=== PATIENT | male | born 1985 | race Caucasian/White ===

== ENCOUNTER 2018-02-24 20:22 | Emergency (ER) | payer OTHER ==
[~2018-02-24] VITALS: Ht 190.5 cm; Wt 136.1 kg
[~2018-02-24 20:22] MED LIST: NICOTINE PATCH1 EAC1 TD
[2018-02-24] MEDS ORDERED: XARELTO10 MG (20:41)
== END 2018-02-24 22:22 | disposition home or self-care (01) ==
LOC: ED 20:22
PROC: 0HQ5XZZ Repair Chest Skin, External Approach (ICD-10-PCS; principal; 2018-02-24)
DX: S21.112A Laceration without foreign body of left front wall of thorax without penetration into thoracic cavity, initial encounter (principal); S21.111A Laceration without foreign body of right front wall of thorax without penetration into thoracic cavity, initial encounter; F17.200 Nicotine dependence, unspecified, uncomplicated; Z79.899 Other long term (current) drug therapy; Z23 Encounter for immunization; W25.XXXA Contact with sharp glass, initial encounter
CPT/HCPCS: 12006; 90471; 90715; 99282

== ENCOUNTER 2018-05-24 16:02 | Emergency (ER) | payer OTHER ==
[~2018-05-24] VITALS: Ht 190.5 cm; Wt 136.1 kg
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
--- OUTSIDE RECORDS SUMMARY | ~2018-05-24 | XMS | Encounter Summary ---
Demographics + + + | Address | [address] | | | [place] [address] | + + + | Home Phone | | + + + | Preferred Language | Unknown | + + + | Marital Status | Single | + + + | Sikhism Affiliation | 1041 | + + + | Race | Unknown | + + + | Ethnic Group | Unknown | + + + Author + + + | Author | [facility] | | | and [place] | + + + | Organization | [facility] | | | and [place] | + + + | Address | Unknown | + + + | Phone | Unavailable | + + + Support + + + + + | Name | Relationship | Address | Phone | + + + + + | Fiona Colby | ECON | [address] [facility] | | | | | [place] | | | | | [place] [address] | | + + + + + | Buddy Avila | ECON | [address] | | | | | [place], | | | | | [place] [address] | | + + + + + Care Team Providers + +------+ + | Care Paramedic Rn Name | Role | Phone | + +------+ + | No, Unknownpcp | PCP | | + +------+ + Reason for Visit + + + | Reason | Comments | + + + | Medication Refill | | + + + Encounter Details +--------+--------+ + + + | Date | Type | Department | Care Team | Description | +--------+--------+ + + + | 03/16/ | Refill | [facility] | Maxine Lucas | Medication Refill | | 2017 | | SUR[address]ERY [address] | MD Michael [address] | | | | | [place], [place] | [address] [facility] | | | | | [address] | [place] [address] | | | | | [phone] | [phone] | | | | | | | | +--------+--------+ + + + Social History + + + +--------+------+ [...] on file | | + + + as of this encounter Plan of Treatment Not on fileas of this encounter Visit Diagnoses Not on filein this encounter"
--- OUTSIDE RECORDS SUMMARY | ~2018-05-24 | XMS | Encounter Summary ---
Demographics + + + | Address | [address] | | | [place] [address] | + + + | Home Phone | | + + + | Preferred Language | Unknown | + + + | Marital Status | Single | + + + | Orthodox Affiliation | 1041 | + + + | Race | Unknown | + + + | Ethnic Group | Unknown | + + + Author + + + | Author | [facility] | | | and [place] | + + + | Organization | [facility] | | | and [place] | + + + | Address | Unknown | + + + | Phone | Unavailable | + + + Support + + + + + | Name | Relationship | Address | Phone | + + + + + | Fiona Colby | ECON | [address] [facility] [address] [facility] | | | | | [place] | | | | | [place] [address] | | + + + + + | Buddy Avila | ECON | [address] | | | | | [place], | | | | | [place] [address] | | + + + + + Care Team Providers + +------+ + | Care Aircraft Electrical Systems Specialist Name | Role | Phone | + +------+ + | No, Unknownpcp | PCP | | + +------+ + Reason for Visit + + + | Reason | Comments | + + + | Wound Check | | + + + Encounter Details +--------+ + + + + | Date | Type | Department | Care Team | Description | +--------+ + + + + | 03/01/ | Emergency | [facility] | Saulo Madera, | Cellulitis, | | 2017 | | [facility] | [place] [address] | unspecified | | | | [place] [address] | [place] | cellulitis site | | | | [place] | [id number] | (Primary Dx) | | | | [address] | | | | | | [phone] | | | +--------+ + + + + Social History + + [...] + + + as of this encounter Last Filed Vital Signs + + + + | Vital Sign | Reading | Time Taken | + + + + | Blood Pressure | 121/76 | 03/01/20181726 PDT | + + + + | Pulse | 92 | 03/01/20181726 PDT | + + + + | Temperature | 36.7 C (98 F) | 03/01/20181726 PDT | + + + + | Respiratory Rate | 18 | 03/01/20181726 PDT | + + + + | Oxygen Saturation | 99% | 03/01/20181726 PDT | + + + + | Inhaled Oxygen | - | - | | Concentration | | | + + + + | Weight | 136.1 kg (300 lb) | 03/01/20181726 PDT | + + + + | Height | - | - | + + + + | Body Mass Index | 37.5 | 03/01/20181726 PDT | + + + + in this encounter Discharge Instructions The following attachments cannot be sent through Care Everywhere.Skin Infection, Cellulitis (Nepali)in this encounter Medications at Time of Discharge + + +---------+---------+ + + | Medication | Sig. | Disp. | Refills | Start | End Date | | | | | | Date | | + + +---------+---------+ + + | acetaminophen | Take 650 mg by mouth | | | | | | (TYLENOL) 325 mg | every 4 hours as | | | | | | tablet | needed for Pain. | | | | | + + +---------+---------+ + + | cephalexin | Take 1 capsule by | 28 | 0 | 03/01/20 | | | (KEFLEX) 500 mg | mouth 4 times daily | capsule | | 18 | 8 | | capsule | for 7 days. | | | | | + + +---------+---------+ + + | rivaroxaban | Take 1 tablet by | 30 | 3 | 12/23/19 | | | (XARELTO) 20 mg | mouth Daily (with | tablet | | 18 | 8 | | tablet | dinner). | | | | | + + +---------+---------+ + + as of this encounter Plan of Treatment Not on fileas of this encounter Visit Diagnoses + + | Diagnosis | + + | Cellulitis, unspecified cellulitis site - Primary | + +"
--- OUTSIDE RECORDS SUMMARY | ~2018-05-24 | XMS | Encounter Summary ---
Demographics + + + | Address | [address] | | | [place] [address] | + + + | Home Phone | | + + + | Preferred Language | Unknown | + + + | Marital Status | Single | + + + | Catholic Affiliation | 1041 | + + + | Race | Unknown | + + + | Ethnic Group | Unknown | + + + Author + + + | Author | [facility] | | | and [place] | + + + | Organization | [facility] | | | and [place] | + + + | Address | Unknown | + + + | Phone | Unavailable | + + + Support + + + + + | Name | Relationship | Address | Phone | + + + + + | Fiona Colby | ECON | [address] [facility] | | | | | [place] | | | | | [place] [address] | | + + + + + | Buddy Avila | ECON | [address] | | | | | [place], | | | | | [place] [address] | | + + + + + Care Team Providers + +------+ + | Care Kettle Cook Name | Role | Phone | + [...] + + | 03/16/ | Refill | [facility] | Maxine Lucas | Medication Refill | | 2017 | | SUR[address] | MD [address] | | | | | [place], [place] | [facility] | | | | | [address] | [place] [address] | | | | | [phone] | [phone] | | | | | | | [...]
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
--- OUTSIDE RECORDS SUMMARY | ~2018-05-24 | XMS | Encounter Summary ---
Demographics + + + | Address | [address] | | | [place] [address] | + + + | Home Phone | | + + + | Preferred Language | Unknown | + + + | Marital Status | Single | + + + | Jain Affiliation | 1041 | + + + | Race | Unknown | + + + | Ethnic Group | Unknown | + + + Author + + + | Author | [facility] | | | and [place] | + + + | Organization | [facility] | | | and [place] | + + + | Address | Unknown | + + + | Phone | Unavailable | + + + Support + + + + + | Name | Relationship | Address | Phone | + + + + + | Fiona Colby | ECON | [address] | | | | | [place] | | | | | [place] [address] | | + + + + + | Buddy Avila | ECON | [address] | | | | | [place], | | | | | [place] [address] | | + + + + + Care Team Providers + +------+ + | Care Surface Plate Finisher Name | Role | Phone | + [...] + + | 03/01/ | Emergency | [facility] | [place], | Cellulitis, | | 2017 | | [facility] | [place] [address] | unspecified | | | | [place] [address] | [place] | cellulitis site | | | | [place] | [phone] | (Primary Dx) | | | | [address] | | | | | | [phone] | | | +--------+ + + + [...] be sent through Care Everywhere.Skin Infection, Cellulitis (Greenlandic)in this encounter Medications at Time of Discharge [...]
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
--- OUTSIDE RECORDS SUMMARY | ~2018-05-24 | XMS | Encounter Summary ---
Demographics + + + | Address | [address] | | | [place] [address] | + + + | Home Phone | | + + + | Preferred Language | Unknown | + + + | Marital Status | Single | + + + | Mormon Affiliation | 1041 | + + + | Race | Unknown | + + + | Ethnic Group | Unknown | + + + Author + + + | Author | [facility] | | | and [place] | + + + | Organization | [facility] | | | and [place] | + + + | Address | Unknown | + + + | Phone | Unavailable | + + + Support + + + + + | Name | Relationship | Address | Phone | + + + + + | Fiona Colby | ECON | [address] [facility] [facility] | | | | | [place] | | | | | [place] [address] | | + + + + + | Buddy Avila | ECON | [address] | | | | | [place], | | | | | [place] [address] | | + + + + + Care Team Providers + +------+ + | Care Contact And Service Clerks Supervisor Name | Role | Phone | + [...] [place] | anticoagulant | | | | [phone] | [phone] | therapy (Primary | | | | [phone] | | Dx); Thrombosis | | | | | | mesenteric artery | | | | | | ([facility]) | +--------+---------+ + + + Social History [...] containing the crushed tablet. Talk to your greek professor regarding the use of this medicine in children. Special care may be needed. What side effects may I notice from receiving this medicine? Side effects that you should report to your doctor or health medicare specialist as soon as p ossible: allergic reactions [...] attention (report to your doctor or health medicare specialist if they continue or are bothersome): dizziness [...] like citalopram, escitalopram, fluoxetine, fluvoxamine, paroxetine, sertraline [place]'s wort verapamil What if I miss a [...] this medicine? Visit your doctor or health medicare specialist for regular checks on your progress. Notify your doctor or health medicare specialist and seek emergency treatment if you develop [...] Progress Notes Mark Hankins MD - 03/17/2018 1150 PDTFormatting of this note may be different [...] history of a mesenteric artery thrombosis in [facility] for which she had surgery and was subsequently placed on Xarelto which he was told he w ould need to be on for 3-6 months. He has recently changed primary care providers and the counts include 234 beds at the [facility] primary care provider is unable to [...] states that he had just walked from [place] which is about 12 miles away and [...] Placement ; Surgeon: Maxine Lucas MD; Location: [facility] MAIN OR FRACTURE SURGERY right hand fx has two pins LAPAROTOMY N/A 12/01/2017 Procedure: Exploratory Laparotomy, Possible Bowel Resection, Possible Wound Closure; Surg lara: Maxine Lucas MD; Location: [facility] MAIN OR LAPAROTOMY N/A 12/02/2017 Procedure: Second Look-Exploratory Laparotomy, Wound Vac Removal, and Abdominal Closure; Surgeon: Maxine Lucas MD; Location: [facility] MAIN OR LAPAROTOMY N/A 12/08/2017 Procedure: Wound Exploration, Exploratory Laparotomy of Hemorrhage; Surgeon: Maxine Lucas MD; Location: [facility] MAIN OR Current Outpatient Prescriptions Medication Sig [...] through to his appointment with his new [facility] care provider. Signs of bleeding dyscrasias are reviewed with him. For the wound drain age he is to clean that daily and cover until this is healed He had he starts having pain o r redness surrounding this area he should be seen right away. Return if symptoms worsen or fail to improve.Srinivas Velarde, SALES CLERK FOOD - 03/17/2018 1630 PDTCocesarg cassia owens MA [...]
[~2018-05-24 16:02] MED LIST changes: +XARELTO10 MG
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
[2018-05-24] MEDS ORDERED: IMODIUM A-D2 M2 PO (19:17)
[2018-05-24] MEDS ORDERED: ONDANSETRON ODT8 MG PO (19:17)
== END 2018-05-24 20:00 | disposition home or self-care (01) ==
LOC: ED 16:02
DX: K52.9 Noninfective gastroenteritis and colitis, unspecified (principal); F17.200 Nicotine dependence, unspecified, uncomplicated; Z79.899 Other long term (current) drug therapy
CPT/HCPCS: 80053; 81001; 83690; 85025; 96361; 96374; 99284; J2405; J7030